=== PATIENT | male | born 1960 | race Caucasian/White ===

== ENCOUNTER 2019-06-14 14:09 | Inpatient (IN) | payer MEDICAID ==
[~2019-06-14] VITALS: Ht 177.8 cm; Wt 77.1 kg
[2019-06-14] MEDS ORDERED: SODIUM CHLORIDE 0.9% 1,000 ML IV ONE ×2 (14:50)
[2019-06-14] MEDS ORDERED: InsuLIN R (HUMAN) 100 UNITS in SODIUM CHL 0.9% 99 ML IV SCH (14:50)
[2019-06-14] MEDS ORDERED: DEXTROSE (50%) 50ML SYRG IV PRN ×2 (15:00→18:15)
[2019-06-14] MEDS ORDERED: ACCU-CHEK COMFORT CURVE STRIP VI SCH (15:00)
[2019-06-14 15:13] LABS: Basophils # (auto) 0.1 uL; Basophils % (auto) 1.4 % (0.0-2.0); Eosinophils # (auto) 0.1 uL; Hematocrit 36.3 % (41.0-53.0); Hemoglobin 12.4 g/dL (13.5-17.5); Lymphocytes # (auto) 1.2 uL; Lymphocytes % (auto) 25.1 % (10.0-50.0); Mean Corpuscular Hgb Conc. 34.3 g/dL (32.0-36.0); Mean Corpuscular Volume 99.1 fL (80.0-100.0); Monocytes # (auto) 0.5 uL; Monocytes % (auto) 11.1 % (0.0-12.0); Neutrophils # (auto) 2.8 uL; Neutrophils % (auto) 60.4 % (37.0-80.0); Nucleated Red Blood Cells % 0.1 %; Platelet Count (auto) 82 10^3/uL (140-450); Red Blood Cells 3.66 10^6/uL (4.5-5.90); Red Cell Distribution Width 16.7 % (11.8-14.3); White Blood Cell 4.6 10^3/uL (4.4-10.8)
[2019-06-14 15:27] LABS: Urine Bacteria NONE SEEN /hpf (None Seen); Urine Blood Negative /uL (Negative); Urine Specific Gravity 1.027 (1.001-1.035); Urine WBC <1 /hpf (0 - 3)
[2019-06-14] MEDS: SODIUM CHLORIDE 0.9% 1,000 ML IV SCH ×3 (15:27→18:15)
[2019-06-14 15:30] LABS: Albumin 2.7 g/dL (3.4-5.0); Calcium 8.9 mg/dL (8.5-10.1); Potassium 3.2 mmol/L (3.5-5.1)
[2019-06-14 15:31] LABS: INR 1.19 (0.9-1.15); Partial Thromboplastin Time 28.1 sec (23.64-32.05)
[2019-06-14 15:32] LABS: Total Protein 7.6 g/dL (6.4-8.2)
[2019-06-14 15:39] LABS: Bilirubin, Total 1.7 mg/dL (0.2-1.0); Magnesium 1.6 mg/dL (1.6-2.6)
[2019-06-14 15:43] LABS: Phosphorus 3.2 mg/dL (2.5-4.90)
[2019-06-14 16:20] LABS: BUN/Creatinine Ratio 6.8
[2019-06-14] MEDS: ACCU-CHEK COMFORT CURVE STRIP VI SCH ×2 (17:48→20:00)
[2019-06-14] MEDS ORDERED: MORPHINE SULF INJ 2 MG/ML SYRINGE 1ML IV PRN ×2 (18:15)
[2019-06-14] MEDS ORDERED: HYDROcodone-ACET 5/325MG TAB PO PRN (18:15)
[2019-06-14] MEDS ORDERED: NITROGLYCERIN 0.4 MG SL TAB SL PRN (18:15)
[2019-06-14] MEDS ORDERED: ONDANSETRON HCL 4 MG/2 ML VIAL IV PRN (18:15)
[2019-06-14] MEDS ORDERED: ACETAMINOPHEN 500 MG TAB PO PRN (18:15)
[2019-06-14] MEDS ORDERED: SODIUM CHLORIDE 0.9% 1,000 ML IV SCH ×2 (18:50→20:50)
[2019-06-14] MEDS ORDERED: THIAMINE HCL 100 MG TAB PO ONE ×2 (19:00→21:15)
[2019-06-14] MEDS ORDERED: FOLIC ACID 1 MG TAB PO ONE ×2 (19:00→21:15)
[2019-06-14] MEDS ORDERED: POTASSIUM EFFERVESENT TAB 25 MEQ PO ONE ×2 (19:15→21:15)
--- NOTE | 2019-06-14 20:20 | NUR ---
MS admit from [facility] admitted to tele/MS after SBAR received. Patient oriented to Socorro Taylor RN primary RN, unit, room, bed, and unit policies regarding patient care and visiting hours. Patient weighed by bedscale and encouraged to call if they need something. Noted wound on back of left olea, per patient it was from spider bite, will take pictures for reference. All questions and concerns addressed, patient verbalized understanding, will continue to monitor Note:
[2019-06-14] MEDS: InsuLIN REG 1unit/0.01ml Soln (100units/ml) SC SCH (21:32)
[2019-06-14] MEDS ORDERED: FOLIC ACID 1 MG TAB ONE ×2 (21:56)
[2019-06-14] MEDS ORDERED: THIAMINE HCL 100 MG TAB ONE ×2 (21:57)
[2019-06-14] MEDS ORDERED: PROPRANOLOL HCL 20 MG TAB ONE (21:58)
[2019-06-14 22:00] VITALS: BP 152/81
[2019-06-14] MEDS ORDERED: INSULIN LANTUS (GLARGINE) 1 /0.01ml (100units/ml) SC ONE ×2 (22:01)
[2019-06-14] MEDS ORDERED: POTASSIUM EFFERVESENT TAB 25 MEQ ONE (22:44)
[2019-06-14] MEDS: PROPRANOLOL HCL 20 MG TAB PO SCH (22:47)
[2019-06-14] MEDS: INSULIN LANTUS (GLARGINE) 1 /0.01ml (100units/ml) SC SCH (23:08)
--- NOTE | 2019-06-15 | NUR ---
IV on LH out, removed aseptically with catheter intact, patient tolerated well IV insertion IV access obtained, via clean sterile technique by inserting 22 gauge catheter at [facility]. IV secured properly. No trauma to site. Patient tolerated well. NOTE: []
[2019-06-15] MEDS: ACCU-CHEK COMFORT CURVE STRIP VI SCH ×7 (00:17→23:59)
[2019-06-15] MEDS: InsuLIN REG 1unit/0.01ml Soln (100units/ml) SC SCH ×6 (00:18→20:03)
[2019-06-15 01:20] VITALS: BP 148/81
[2019-06-15] MEDS: SODIUM CHLORIDE 0.9% 1,000 ML IV SCH ×2 (02:15→14:24)
[2019-06-15 05:00] VITALS: BP 118/72
[2019-06-15] MEDS: SPIRONOLACTONE 25 MG TAB PO SCH ×3 (05:48→18:03)
--- NOTE | 2019-06-15 06:00 | NUR ---
Patient refused Aldactone at this time despite explaining the importance of it. Per patient, he will take it later. Will endorse to keny ENCISO
[2019-06-15 06:34] LABS: Basophils # (auto) 0.1 uL; Hemoglobin 12.4 g/dL (13.5-17.5); Lymphocytes # (auto) 1.8 uL; Monocytes # (auto) 0.6 uL; Monocytes % (auto) 10.1 % (0.0-12.0); Nucleated Red Blood Cells % 0.1 %; Red Blood Cells 3.62 10^6/uL (4.5-5.90)
[2019-06-15 06:36] LABS: Basophils % (auto) 1.7 % (0.0-2.0); Eosinophils # (auto) 0.3 uL; Eosinophils % (auto) 4.6 % (0.0-7.0); Hematocrit 34.4 % (41.0-53.0); Mean Corpuscular Hemoglobin 34.3 pg (28.0-32.0); Mean Corpuscular Volume 95.3 fL (80.0-100.0); Neutrophils # (auto) 2.9 uL; Neutrophils % (auto) 51.6 % (37.0-80.0); Platelet Count (auto) 94 10^3/uL (140-450); Red Cell Distribution Width 16.7 % (11.8-14.3); White Blood Cell 5.7 10^3/uL (4.4-10.8)
[2019-06-15 06:55] LABS: Albumin 2.4 g/dL (3.4-5.0); Calcium 7.6 mg/dL (8.5-10.1)
[2019-06-15 06:58] LABS: Bilirubin, Total 1.5 mg/dL (0.2-1.0)
[2019-06-15 07:00] LABS: Alcohol, Urine < 3.0 mg/dL (0-5); Amphetamine Screen, Urine NEGATIVE (NEGATIVE); Barbiturate Scree,Urine NEGATIVE (NEGATIVE); Benzodiazephine Screen, Urine NEGATIVE (NEGATIVE); Cannabinoid Screen, Urine POSITIVE (NEGATIVE); Cocaine Screen, Urine NEGATIVE (NEGATIVE); Opiate Scree,Urine NEGATIVE (NEGATIVE); Phencyclidine Screen, Urine NEGATIVE (NEGATIVE)
[2019-06-15 09:00] VITALS: BP 111/69
[2019-06-15] MEDS: PROPRANOLOL HCL 20 MG TAB PO SCH ×2 (09:33→21:50)
[2019-06-15] MEDS ORDERED: FOLIC ACID 1 MG TAB PO SCH (10:00)
[2019-06-15] MEDS ORDERED: FAMOTIDINE 20 MG TAB PO SCH (10:00)
[2019-06-15] MEDS ORDERED: THIAMINE HCL 100 MG TAB PO SCH (10:00)
[2019-06-15] MEDS ORDERED: LACTULOSE 20Gm/30ML SOLN PO SCH (10:00)
[2019-06-15] MEDS ORDERED: MULTIPLE VITAMIN TAB PO SCH (10:00)
--- NOTE | 2019-06-15 12:44 | NUR ---
PT SEEN BY DR. BOWMAN PT MADE [place] FOR POSSIBLE DISCHARGE TOMORROW.
[2019-06-15] MEDS ORDERED: POTASSIUM CHL 20 Meq TABLET PO ONE (12:45)
[2019-06-15 13:00] VITALS: BP 116/72
--- NOTE | 2019-06-15 15:43 | NUR ---
Received Social Service consult to see pt as he does not have a permanent place to stay. Pt states he was not homeless two weeks. However at this time he is. Pt has been staying at a motel and paying for it himself. Pt is requesting motel vouchers and administrator social welfare explained to him that this hospital no longer gives out vouchers. Pt states he earns $840.00 a month from [employer]. He further states he has many medical problems and is on oxygen most of the time. Pt has a midline on his upper left arm. Pt does have a mother and they were speaking with each other when administrator social welfare went into the room. Gave pt packet of resources and requested that he look through them. It will be difficult to find a fdc to take pt with oxygen. Addendum: 06/15/19 at 1621 by SHANA BARRIOS SS The above information is does not concern the pt listed above.
[2019-06-15 17:00] VITALS: BP 122/74
--- NOTE | 2019-06-15 19:30 | NUR ---
Opening Shift Note Assumed care of patient, awake and alert oriented x4. No S/S of distress/SOB or pain noted. Bed is in lowest locked position with bed rails upx2 and call light is within reach of the patient. Instructed on POC and to call for assist PRN.
[2019-06-15] MEDS: INSULIN LANTUS (GLARGINE) 1 /0.01ml (100units/ml) SC SCH (21:58)
[2019-06-15 22:00] VITALS: BP 128/69
[2019-06-16] MEDS: SODIUM CHLORIDE 0.9% 1,000 ML IV SCH (00:32)
[2019-06-16] MEDS: InsuLIN REG 1unit/0.01ml Soln (100units/ml) SC SCH ×2 (04:00)
[2019-06-16] MEDS: ACCU-CHEK COMFORT CURVE STRIP VI SCH (04:31)
[2019-06-16 05:10] VITALS: BP 125/74
[2019-06-16] MEDS: SPIRONOLACTONE 25 MG TAB PO SCH (05:17)
--- NOTE | 2019-06-16 05:19 | NUR ---
Patient refused Aldactone med: Patient states "I dont want to take that pill that makes me pee a lot. I peed way too much last time and I didnt like it." Educated and explained to the patient the importance of this medication. Patient verbalized understanding but refused med at this time.
--- NOTE | 2019-06-16 06:45 | NUR ---
PAM SIGNED AMA: PATIENT VOCOLIZED THAT HE WANTS TO SIGN OUT AMA STATING " I need to get back on the road. Im not waiting here till dark when the doctors discharge me out in the rain. I need to start walking and find a ride for myself." Advised patient to stay in the hospital to further discuss options before discharge and to get clearance from the doctor before leaving the hospital but the patient refused. Patient signed AMA form. IV removed from right forearm, gauze placed and secured with coband. Patient tolerated well. Patient signed AMA form.
--- NOTE | 2019-06-16 06:48 | NUR ---
Paged hospitalist to notify of AMA: Paged hospitalist to notify hospitalist regarding AMA. Patient signed form and is adamant to leave. Waiting for hospitalist to call back.
[2019-06-16 06:59] LABS: Calcium 7.7 mg/dL (8.5-10.1); Potassium 3.2 mmol/L (3.5-5.1)
--- NOTE | 2019-06-16 07:04 | NUR ---
HOSPITALIST CALLED BACK: [facility]OSPITALESEQU[facility]EL [facility] CALLED BACK AND NOTIFIED ABOUT PATIENT SIGNING AMA PAPER AND LEAVING THE HOSPITAL AND ATTEMPTED TO EDUCATE THE PATIENT TO STAY. HOSPITALESEQUIEL [facility]EVEDO MADE AWARE OF PATIENT LEAVING AMA.
--- NOTE | 2019-06-16 07:10 | NUR ---
PATIENT LEFT: Patient left AMA with patients own belongings ambulating to and out the elevator. Patient was medsurg patient and had no telemetry leads. IV already removed from patients arm. Patient left AMA.
--- NOTE | 2019-06-16 14:30 | NUR ---
Pt left without being seen.
== END 2019-06-16 07:10 | disposition left against medical advice (07) | DRG 420 ==
LOC: EDBD 14:09 → ER 14:15 → OVERFLOW 14:16 → WEST WING 20:20
PROVIDERS: ADMIT Nurse Practitioner Acute Care; ATTEND Internal Medicine
DX: E11.10 Type 2 diabetes mellitus with ketoacidosis without coma (principal); E44.0 Moderate protein-calorie malnutrition; K70.30 Alcoholic cirrhosis of liver without ascites; E86.0 Dehydration; E87.6 Hypokalemia; D64.9 Anemia, unspecified; B19.20 Unspecified viral hepatitis C without hepatic coma; F17.210 Nicotine dependence, cigarettes, uncomplicated; K21.9 Gastro-esophageal reflux disease without esophagitis; I10 Essential (primary) hypertension; J44.9 Chronic obstructive pulmonary disease, unspecified; E11.65 Type 2 diabetes mellitus with hyperglycemia; Z91.14 Patient's other noncompliance with medication regimen; Z53.29 Procedure and treatment not carried out because of patient's decision for other reasons; Z68.24 Body mass index [BMI] 24.0-24.9, adult
CPT/HCPCS: 36415; 71045; 80048; 80053; 80061; 80307; 81001; 82010; 82140; 82962; 83036; 83735; 83930; 84100; 84484; 85025; 85610; 85730; 93005; G0378; J1815